=== PATIENT | female | born 1975 | race Caucasian/White ===

== ENCOUNTER 2018-03-12 23:01 | Observation (INO) | payer MEDICAID, OTHER ==
[2018-03-13 00:55] LABS: BASO # 0.1 K/uL (0.0-0.2); BASO % 0.6 % (0.0-2.0); EOS # 0.1 K/uL (0.0-0.7); EOS % 0.6 % (0.0-4.0); HEMOGLOBIN 13.4 g/dL (11.0-16.0); LYMPH # 1.8 K/uL (1.0-4.3); LYMPH % 18.2 % (20.0-40.0); MEAN CELL VOLUME 91.7 fL (81.0-99.0); MEAN CORPUSCULAR HEMOGLOBIN 32.2 pg (27.0-31.0); MEAN CORPUSCULAR HGB CONC 35.1 g/dL (33.0-37.0); MEAN PLATELET VOLUME 7.8 fL (7.2-11.7); MONO % 9.5 % (0.0-10.0); NEUT # 7.2 K/uL (1.8-7.0); NEUT % 71.1 % (50.0-75.0); RBC 4.15 Mil/uL (3.80-5.20); RED CELL DISTRIBUTION WIDTH 12.8 % (11.5-14.5); WHITE BLOOD COUNT 10.1 K/uL (4.8-10.8)
[2018-03-13 01:09] LABS: ALB/GLOB RATIO 1.4 (1.0-2.1); ALBUMIN 4.6 g/dL (3.5-5.0); ALT/SGPT 21 U/L (9-52); AST/SGOT 19 U/L (14-36); BLOOD UREA NITROGEN 11 mg/dL (7-17); GFR AFRICAN-AMERICAN > 60; GFR NON-AFRICAN AMERICAN > 60
--- NOTE | 2018-03-13 01:18 | C.PDOC ---
History Of Present Illness 42 y/o female presents to the ED complaining of painful mass to left breast since yesterday. Also reports subjective fever and chills. Denies any trauma or nipple discharge. Denies any prior mammograms. Denies family history of breast cancer. Time Seen by Provider: 03/12/18 23:18 Chief Complaint (Nursing): Breast Problem History Per: Patient History/Exam Limitations: no limitations Onset/Duration Of Symptoms: Days (x2) Current Symptoms Are (Timing): Still Present Past Medical History Reviewed: Historical Data, Nursing Documentation, Vital Signs Vital Signs: Last Vital Signs Temp 98.3 F 03/13/18 04:16 Pulse 75 03/13/18 04:16 Resp 18 03/13/18 04:16 BP 144/92 H 03/13/18 04:16 Pulse Ox 98 03/13/18 04:16 - Medical History PMH: No Chronic Diseases Surgical History: Family History: States: No Known Family Hx - Social History Hx Tobacco Use: No Hx Alcohol Use: No Hx Substance Use: No - Immunization History Hx Tetanus Toxoid Vaccination: No Hx Influenza Vaccination: No Hx Pneumococcal Vaccination: No Review Of Systems Constitutional: Positive for: Fever, Chills Skin: Positive for: Other (left breast mass). Negative for: Rash Physical Exam - Physical Exam Appears: Non-toxic, No Acute Distress Skin: Warm, Dry Head: Atraumatic, Normacephalic Eye(s): bilateral: Normal Inspection, PERRL, EOMI Neck: Normal ROM, Supple Lymphatic: No Adenopathy (at axilla or cervical regions) Chest: Other (Tender, firm, indurated mass to the left breast at 1-3 oclock area; No skin changes, fluctuance, or nipple discharge; Minimal erythema to the left upper breast) Cardiovascular: Rhythm Regular (but tachy) Respiratory: Normal Breath Sounds, No Accessory Muscle Use, No Rales, No Rhonchi , No Wheezing Gastrointestinal/Abdominal: Soft, No Tenderness, No Distention Back: Normal Inspection Extremity: Bilateral: Atraumatic, Normal Color And Temperature, Normal ROM Pulses: Left Dorsalis Pedis: Normal, Right Dorsalis Pedis: Normal Neurological/Psych: Oriented x3, Normal Speech, Normal Cranial Nerves, Normal Motor, Normal Sensation, Other (No focal deficits) Gait: Steady ED Course And Treatment - Laboratory Results Result Diagrams: 03/13/18 00:51 03/13/18 00:51 O2 Sat by Pulse Oximetry: 99 (RA) Pulse Ox Interpretation: Normal Progress Note: Blood work and cultures sent. Patient treated with PO Tylenol. Administered IV Zosyn and Toradol. 2:25AM Case discussed with Dr. Mccall, who will admit the patient and requests surgical consult. Surgiccal resident paged and aware of consult - Physician Consult Information Physician Contacted: Jamila Mccall Outcome Of Conversation: patient accepted to service for admission Disposition Counseled Patient/Family Regarding: Studies Performed, Diagnosis - Disposition Disposition: HOSPITALIZED Disposition Time: 02:26 Condition: STABLE - Clinical Impression Clinical Impression: Abscess of breast, Mass of left breast - PA / PREFLIGHT INSPECTOR / Resident Statement MD/DO has reviewed & agrees with the documentation as recorded. - Scribe Statement The provider has reviewed the documentation as recorded by the Scribe (Aminata Curran) All medical record entries made by the Scribe were at my direction and personally dictated by me. I have reviewed the chart and agree that the record accurately reflects my personal performance of the history, physical exam, medical decision making, and the department course for this patient. I have also personally directed, reviewed, and agree with the discharge instructions and disposition.
[2018-03-13] MEDS ORDERED: Piperacillin/Tazobact 3.375 gm 100 ML IV STA (02:10)
[2018-03-13] MEDS ORDERED: Piperacillin/Tazobact 3.375 gm 100 ML IVPB ONE (02:35)
[2018-03-13] MEDS ORDERED: HYDROmorphone 1 mg/ml ISec IVP PRN (04:03)
--- NOTE | 2018-03-13 04:07 | CP.PCM.CON ---
<Bryon Khan - Last Filed: 03/13/18 06:12> History of Present Illness - History of Present Illness History of Present Illness: SURGERY CONSULT NOTE FOR DR. MCPHERSON 42F presents to [facility] ED for left painful breast lump. She states she first felt the pain Monday and was not doing anything in particular that could have started it. She states the pain did not resolve so she was doing a self exam where she felt a mass in the left breast. She states she has never had these symptoms before, denies erythema, denies drainage, denies abnormal discharge. She has never had a mammogram or ultrasound of the breast. PMH: denies PSH: *1 Social: denies tobacco and alcohol use Allergies: NKDA Past Patient History - Infectious Disease Hx of Infectious Diseases: None - Past Social History Smoking Status: Never Smoked - PSYCHIATRIC Hx Substance Use: No - SURGICAL HISTORY Hx Surgeries: Yes Hx Section: Yes (x1) - ANESTHESIA Hx Anesthesia: Yes Hx Anesthesia Reactions: No Meds Allergies/Adverse Reactions: Allergies Allergy/AdvReac Type Severity Reaction Status Date / Time No Known Allergies Allergy Verified 03/12/18 23:08 - Medications Medications: Current Medications Hydromorphone HCl (Dilaudid) 1 mg IVP Q4H PRN PRN Reason: Pain, severe (8-10) Piperacillin Sod/Tazobactam (Sod 3.375 gm/ Sodium Chloride) 100 mls @ 200 mls/ hr IVPB Q6H [facility] PRN Reason: Protocol Sodium Chloride (Sodium Chloride 0.9%) 1,000 mls @ 100 mls/hr IV .Q10H [facility] Physical Exam - Constitutional Appears: Non-toxic, No Acute Distress - Eye Exam Eye Exam: EOMI, PERRL - ENT Exam ENT Exam: Mucous Membranes Moist - Respiratory Exam Respiratory Exam: Clear to Auscultation Bilateral, NORMAL BREATHING PATTERN - Cardiovascular Exam Cardiovascular Exam: REGULAR RHYTHM, +S1, +S2 - GI/Abdominal Exam GI & Abdominal Exam: Soft. absent: Distended, Firm, Guarding, Rebound, Rigid, Tenderness - Extremities Exam Extremities exam: Negative for: pedal edema, tenderness - Neurological Exam Neurological exam: Alert, Oriented x3 - Psychiatric Exam Psychiatric exam: Normal Affect, Normal Mood - Skin Skin Exam: Dry, Intact, Normal Color, Warm Additional comments: left breast mass approx 4*4cm, firm and mobile No skin changes, no erythema, no drainage Normal right breast. Results - Vital Signs Recent Vital Signs: Last Vital Signs Temp 98.3 F 03/13/18 03:11 Pulse 67 03/13/18 03:11 Resp 16 03/13/18 03:11 BP 110/73 03/13/18 03:11 Pulse Ox 98 03/13/18 03:11 - Labs Result Diagrams: 03/13/18 00:51 03/13/18 00:51 Labs: Laboratory Results - last 24 hr 03/13/18 03/13/18 03/13/18 00:51 00:51 00:51 WBC 10.1 RBC 4.15 Hgb 13.4 Hct 38.1 MCV 91.7 MCH 32.2 H MCHC 35.1 RDW 12.8 Plt Count 232 MPV 7.8 Neut % (Auto) 71.1 Lymph % (Auto) 18.2 L Emery % (Auto) 9.5 Eos % (Auto) 0.6 Baso % (Auto) 0.6 Neut # (Auto) 7.2 H Lymph # (Auto) 1.8 Emery # (Auto) 1.0 H Eos # (Auto) 0.1 Baso # (Auto) 0.1 Sodium 139 Potassium 3.9 Chloride 102 Carbon Dioxide 25 Anion Gap 16 BUN 11 Creatinine 0.6 L Est GFR ( Amer) > 60 Est GFR (Non-Af Amer) > 60 Random Glucose 107 H Calcium 9.0 Total Bilirubin 0.6 AST 19 ALT 21 Alkaline Phosphatase 83 Total Protein 7.9 Albumin 4.6 Globulin 3.3 Albumin/Globulin Ratio 1.4 Urine HCG, Qual Negative Assessment & Plan - Assessment and Plan (Free Text) Assessment: 42F with painful mass of the left breast Plan: NPO, IVF Pain control Ultrasound of bilateral breast Further recs discuss with Dr. Ky Khan, PGY2 <Gerald Mcpherson - Last Filed: 03/14/18 17:37> Meds - Medications Medications: Current Medications Acetaminophen (Tylenol 325mg Tab) 650 mg PO Q6 PRN PRN Reason: Fever >100.4 F Hydromorphone HCl (Dilaudid) 0.5 mg IVP Q6 [facility] Last Admin: 03/14/18 12:40 Dose: Not Given Sodium Chloride (Sodium Chloride 0.9%) 1,000 mls @ 100 mls/hr IV .Q10H [facility]PH[facility]IE Last Admin: 03/14/18 12:23 Dose: 100 mls/hr Results - Vital Signs Recent Vital Signs: Last Vital Signs Temp 98.2 F 03/14/18 15:00 Pulse 65 03/14/18 15:00 Resp 20 03/14/18 15:00 BP 120/80 03/14/18 15:00 Pulse Ox 100 03/14/18 15:00 - Labs Result Diagrams: 03/14/18 07:40 03/14/18 07:40 Labs: Laboratory Results - last 24 hr 03/14/18 03/14/18 03/14/18 07:40 07:40 07:59 WBC 9.6 RBC 4.31 Hgb 14.0 Hct 39.5 MCV 91.6 MCH 32.5 H MCHC 35.5 RDW 13.3 Plt Count 194 MPV 8.7 Neut % (Auto) 70.2 Lymph % (Auto) 20.2 Emery % (Auto) 7.5 Eos % (Auto) 1.3 Baso % (Auto) 0.8 Neut # (Auto) 6.8 Lymph # (Auto) 1.9 Emery # (Auto) 0.7 Eos # (Auto) 0.1 Baso # (Auto) 0.1 Sodium 139 Potassium 4.0 Chloride 106 Carbon Dioxide 25 Anion Gap 12 BUN 10 Creatinine 0.6 L Est GFR ( Amer) > 60 Est GFR (Non-Af Amer) > 60 Random Glucose 101 Calcium 8.7 Total Bilirubin 0.7 AST 22 ALT 17 Alkaline Phosphatase 77 Total Protein 7.5 Albumin 4.2 Globulin 3.3 Albumin/Globulin Ratio 1.3 Urine HCG, Qual Negative Attending/Attestation - Attestation I have personally seen and examined this patient.: Yes I have fully participated in the care of the patient.: Yes I have reviewed all pertinent clinical information: Yes Notes (Text): Pt was seen and examined at bedside Agree with above note and assessment Pt with Left breast pain and Mass Us of breast suggestive of BIRADS 0, No collection Left Breast: Tender in left outer mid breast with palpable mass. No axillary LNpathy Labs and radiology reviewed. Ass: Left breast mastitis. possible abscess Plan: C.w IV antibiotics CT scan of A/P Po analgesics Plan d.w pt in detail Risk and benefit explained in detail.
[2018-03-13] MEDS: Sodium Chloride 0.9% 1,000 ML IV SCH ×3 (04:33→23:44)
[2018-03-13] MEDS: Piperacillin/Tazobact 3.375 GM in Sodium Chloride 100 ML IVPB SCH ×4 (04:39→21:17)
[2018-03-13 07:55] VITALS: RESP 20
--- NOTE | 2018-03-13 09:37 | RAD ---
HISTORY: preop COMPARISON: No prior. TECHNIQUE: Chest PA and lateral FINDINGS: LUNGS: No active pulmonary disease. PLEURA: No significant pleural effusion identified. No pneumothorax apparent. CARDIOVASCULAR: Normal. OSSEOUS STRUCTURES: Mild multilevel degenerative spondylosis of the thoracic spine. Mild dextroscoliosis centered in the mid to lower thoracic region VISUALIZED UPPER ABDOMEN: Normal. OTHER FINDINGS: Bilateral in situ nipple rings. IMPRESSION: No active disease.
--- NOTE | 2018-03-13 10:40 | CP.PCM.HP ---
History of Present Illness - History of Present Illness History of Present Illness: pt has mass l brest tender and warm Present on Admission - Present on Admission Any Indicators Present on Admission: No Review of Systems - Review of Systems Systems not reviewed;Unavailable: Acuity of Condition - Constitutional Constitutional: As Per HPI - EENT Eyes: As Per HPI Ears: As Per HPI Nose/Mouth/Throat: As Per HPI - Breasts Breasts: As Per HPI - Cardiovascular Cardiovascular: As Per HPI - Respiratory Respiratory: As Per HPI - Gastrointestinal Gastrointestinal: As Per HPI - Genitourinary Genitourinary: As Per HPI - Reproductive: Female Reproductive:Female: As Per HPI - Menstruation Menstruation: As Per HPI - Musculoskeletal Musculoskeletal: As Per HPI - Integumentary Integumentary: As Per HPI - Neurological Neurological: As Per HPI - Psychiatric Psychiatric: As Per HPI - Endocrine Endocrine: As Per HPI - Hematologic/Lymphatic Hematologic: As Per HPI Past Patient History - Infectious Disease Hx of Infectious Diseases: None - Past Social History Smoking Status: Never Smoked - PSYCHIATRIC Hx Substance Use: No - SURGICAL HISTORY Hx Surgeries: Yes Hx Section: Yes (x1) - ANESTHESIA Hx Anesthesia: Yes Hx Anesthesia Reactions: No Meds Allergies/Adverse Reactions: Allergies Allergy/AdvReac Type Severity Reaction Status Date / Time No Known Allergies Allergy Verified 03/12/18 23:08 Physical Exam - Constitutional Appears: Non-toxic - Head Exam Head Exam: NORMAL INSPECTION - Eye Exam Eye Exam: Normal appearance Pupil Exam: NORMAL ACCOMODATION - ENT Exam ENT Exam: Mucous Membranes Moist - Neck Exam Neck exam: Positive for: Full Rom - Respiratory Exam Respiratory Exam: NORMAL BREATHING PATTERN - Cardiovascular Exam Cardiovascular Exam: REGULAR RHYTHM - GI/Abdominal Exam GI & Abdominal Exam: Normal Bowel Sounds - Rectal Exam Rectal Exam: NORMAL INSPECTION - Exam Exam: NORMAL INSPECTION - Extremities Exam Extremities exam: Positive for: normal inspection - Back Exam Back exam: NORMAL INSPECTION - Neurological Exam Neurological exam: Oriented x3 - Psychiatric Exam Psychiatric exam: Normal Affect - Skin Skin Exam: Normal Color Results - Vital Signs Recent Vital Signs: Last Vital Signs Temp 97.9 F 03/13/18 07:00 Pulse 70 03/13/18 07:00 Resp 20 03/13/18 07:00 BP 112/74 03/13/18 07:00 Pulse Ox 99 03/13/18 08:15 - Labs Result Diagrams: 03/13/18 00:51 03/13/18 00:51 Labs: Laboratory Results - last 24 hr 03/13/18 03/13/18 03/13/18 00:51 00:51 00:51 WBC 10.1 RBC 4.15 Hgb 13.4 Hct 38.1 MCV 91.7 MCH 32.2 H MCHC 35.1 RDW 12.8 Plt Count 232 MPV 7.8 Neut % (Auto) 71.1 Lymph % (Auto) 18.2 L Mcclain % (Auto) 9.5 Eos % (Auto) 0.6 Baso % (Auto) 0.6 Neut # (Auto) 7.2 H Lymph # (Auto) 1.8 Mcclain # (Auto) 1.0 H Eos # (Auto) 0.1 Baso # (Auto) 0.1 Sodium 139 Potassium 3.9 Chloride 102 Carbon Dioxide 25 Anion Gap 16 BUN 11 Creatinine 0.6 L Est GFR ( Amer) > 60 Est GFR (Non-Af Amer) > 60 Random Glucose 107 H Calcium 9.0 Total Bilirubin 0.6 AST 19 ALT 21 Alkaline Phosphatase 83 Total Protein 7.9 Albumin 4.6 Globulin 3.3 Albumin/Globulin Ratio 1.4 Urine HCG, Qual Negative Assessment & Plan - Assessment and Plan (Free Text) Assessment: ac pain fever tender sewling l brest possible abcess Plan: as per orders - Date & Time Date: 03/13/18 Time: 10:40
[2018-03-13] MEDS: HYDROmorphone 0.5 mg/0.5 ml ISec IVP SCH ×3 (12:16→23:47)
[2018-03-13 14:09] LABS: INR 1.1; PROTHROMBIN TIME 11.7 SECONDS (9.7-12.2)
--- NOTE | 2018-03-13 17:13 | US ---
PROCEDURE: HISTORY: mass tender left breast COMPARISON: None TECHNIQUE: Targeted left breast attention to the concern in the left breast at 2 to 3 o'clock was made. FINDINGS: Over patient's area of palpable nodularity, there was echogenic and heterogeneous fibrocystic like echotexture noted. No discrete cyst, solid mass or worrisome sonographic appearance here noted. IMPRESSION: No sonographic simple cyst or solid discrete mass or sonographic worrisome mass in the area of clinical concern. Patient is not presenting as if she has any type of left sided mastitis. There is no abscess here suggested either. No skin thickening or nipple retraction noted. The the area palpable concern benign gross cystic appearing echotexture is noted. Clinical correlation and follow-up is recommended. According to the patient she is yet to have a mammogram. This is strongly recommended as well . This was explained to the patient BIRADS-0 Need Additional Imaging Evaluation diagnostic mammography recommended
[2018-03-13] MEDS ORDERED: Iodixanol 320 MG/ML 100 ML BOTTLE IV ONE ×2 (18:27→18:35)
--- NOTE | 2018-03-13 19:49 | CT ---
EXAM: CT Chest With Intravenous Contrast EXAM DATE/TIME: Exam ordered 03/13/2018 5:34 PM CLINICAL HISTORY: 42 years old, female; Pain; Other: Left breast pain; Additional info: Brest pain TECHNIQUE: Axial computed tomography images of the chest with intravenous contrast. All CT scans at this facility use one or more dose reduction techniques, viz.: automated exposure control; ma/kV adjustment per patient size (including targeted exams where dose is matched to indication; i.e. head); or iterative reconstruction technique. Coronal and sagittal reformatted images were created and reviewed. CONTRAST: 100 mL of visipaque administered intravenously. COMPARISON: No relevant prior studies available. FINDINGS: Lungs: Unremarkable. No mass. No consolidation. Pleural space: Unremarkable. No pneumothorax. No significant effusion. Heart: Unremarkable. No cardiomegaly. No significant pericardial effusion. Bones/joints: Unremarkable. No acute fracture. No dislocation. Soft tissues: There is mild asymmetric increased density noted of the left breast as compared to the right. There is a right-sided nipple ring. There is thickening noted of the nipple and areola. Note is made of the report of the breast ultrasound which indicated no skin thickening. Vasculature: Unremarkable. No thoracic aortic aneurysm. Lymph nodes: Unremarkable. No enlarged lymph nodes. IMPRESSION: 1. Mild asymmetry noted in breast density with the left breast being denser than the right. Additionally mild thickening of the skin and nipple/areola is noted when compared to the contralateral side. Findings are most consistent with a mastitis/cellulitis. Inflammatory carcinoma can mimic mastitis. Correlation with the patient's mammogram and clinical exam would be helpful. Consultation with a breast surgeon might also be considered
[2018-03-14] MEDS: Piperacillin/Tazobact 3.375 GM in Sodium Chloride 100 ML IVPB SCH (03:59)
[2018-03-14] MEDS: HYDROmorphone 0.5 mg/0.5 ml ISec IVP SCH ×3 (06:07→18:00)
[2018-03-14 07:46] LABS: BASO # 0.1 K/uL (0.0-0.2); BASO % 0.8 % (0.0-2.0); EOS # 0.1 K/uL (0.0-0.7); EOS % 1.3 % (0.0-4.0); LYMPH # 1.9 K/uL (1.0-4.3); LYMPH % 20.2 % (20.0-40.0); MEAN CELL VOLUME 91.6 fL (81.0-99.0); MEAN CORPUSCULAR HEMOGLOBIN 32.5 pg (27.0-31.0); MEAN CORPUSCULAR HGB CONC 35.5 g/dL (33.0-37.0); MEAN PLATELET VOLUME 8.7 fL (7.2-11.7); MONO # 0.7 K/uL (0.0-0.8); MONO % 7.5 % (0.0-10.0); NEUT # 6.8 K/uL (1.8-7.0); NEUT % 70.2 % (50.0-75.0); NRBC % 0.1 % (0.0-2.0); RBC 4.31 Mil/uL (3.80-5.20); RED CELL DISTRIBUTION WIDTH 13.3 % (11.5-14.5); WHITE BLOOD COUNT 9.6 K/uL (4.8-10.8)
[2018-03-14 08:05] LABS: ALB/GLOB RATIO 1.3 (1.0-2.1); ALBUMIN 4.2 g/dL (3.5-5.0); ALT/SGPT 17 U/L (9-52); AST/SGOT 22 U/L (14-36); BLOOD UREA NITROGEN 10 mg/dL (7-17); CALCIUM 8.7 mg/dl (8.6-10.4); GFR AFRICAN-AMERICAN > 60; GFR NON-AFRICAN AMERICAN > 60
--- NOTE | 2018-03-14 11:07 | CP.PCM.PN ---
Subjective - Date & Time of Evaluation Date of Evaluation: 03/14/18 Time of Evaluation: 11:05 - Subjective Subjective: pt has tender mass l brest seen by mandoan will go to or today Objective - Vital Signs/Intake and Output Vital Signs (last 24 hours): Temp Pulse Resp BP Pulse Ox 98.2 F 71 20 130/83 97 03/14/18 07:05 03/14/18 07:05 03/14/18 07:05 03/14/18 07:05 03/14/18 07:05 Intake and Output: 03/14/18 03/14/18 06:59 18:59 Intake Total 1120 Balance 1120 - Medications Medications: Current Medications Acetaminophen (Tylenol 325mg Tab) 650 mg PO Q6 PRN PRN Reason: Fever >100.4 F Hydromorphone HCl (Dilaudid) 0.5 mg IVP Q6 [facility] Last Admin: 03/14/18 06:07 Dose: Not Given Sodium Chloride (Sodium Chloride 0.9%) 1,000 mls @ 100 mls/hr IV .Q10H [facility] Last Admin: 03/13/18 23:44 Dose: 100 mls/hr - Labs Labs: 03/14/18 07:40 03/14/18 07:40 PT 11.7 SECONDS (9.7-12.2) 03/13/18 13:56 INR 1.1 03/13/18 13:56 APTT 29 SECONDS (21-34) 03/13/18 13:56 - Constitutional Appears: Non-toxic - Head Exam Head Exam: NORMAL INSPECTION - Eye Exam Eye Exam: Normal appearance Pupil Exam: NORMAL ACCOMODATION - ENT Exam ENT Exam: Normal Exam - Neck Exam Neck Exam: Full ROM - Respiratory Exam Respiratory Exam: Clear to Ausculation Bilateral - Cardiovascular Exam Cardiovascular Exam: REGULAR RHYTHM Additional comments: ekg normal - GI/Abdominal Exam GI & Abdominal Exam: Normal Bowel Sounds - Exam Exam: NORMAL INSPECTION - Extremities Exam Extremities Exam: Full ROM - Back Exam Back Exam: NORMAL INSPECTION - Neurological Exam Neurological Exam: Alert, Normal Gait, Oriented x3 - Psychiatric Exam Psychiatric exam: Normal Affect - Skin Skin Exam: Normal Color Assessment and Plan - Assessment and Plan (Free Text) Assessment: tender mass brest Plan: or today
[2018-03-14] MEDS: Sodium Chloride 0.9% 1,000 ML IV SCH ×3 (11:15→21:26)
--- NOTE | 2018-03-14 14:29 | CP.PCM.PN ---
<Bryon Khan - Last Filed: 03/14/18 14:26> Subjective - Date & Time of Evaluation Date of Evaluation: 03/14/18 Time of Evaluation: 14:26 - Subjective Subjective: SURGERY NOTE FOR DR. MCPHERSON 42F seen and examined at bedside. Patient states left breast pain continues, denies fevers or chills, denies any other symptoms. Objective - Vital Signs/Intake and Output Vital Signs (last 24 hours): Temp Pulse Resp BP Pulse Ox 98.2 F 71 20 130/83 97 03/14/18 07:05 03/14/18 07:05 03/14/18 07:05 03/14/18 07:05 03/14/18 07:05 Intake and Output: 03/14/18 03/14/18 06:59 18:59 Intake Total 1120 700 Balance 1120 700 - Medications Medications: Current Medications Acetaminophen (Tylenol 325mg Tab) 650 mg PO Q6 PRN PRN Reason: Fever >100.4 F Hydromorphone HCl (Dilaudid) 0.5 mg IVP Q6 [facility] Last Admin: 03/14/18 12:40 Dose: Not Given Sodium Chloride (Sodium Chloride 0.9%) 1,000 mls @ 100 mls/hr IV .Q10H [facility] Last Admin: 03/14/18 12:23 Dose: 100 mls/hr - Labs Labs: 03/14/18 07:40 03/14/18 07:40 PT 11.7 SECONDS (9.7-12.2) 03/13/18 13:56 INR 1.1 03/13/18 13:56 APTT 29 SECONDS (21-34) 03/13/18 13:56 - Constitutional Appears: Non-toxic, No Acute Distress - Respiratory Exam Respiratory Exam: Clear to Ausculation Bilateral, NORMAL BREATHING PATTERN - Cardiovascular Exam Cardiovascular Exam: REGULAR RHYTHM, +S1, +S2 - GI/Abdominal Exam GI & Abdominal Exam: Soft. absent: Distended, Firm, Guarding, Rigid, Tenderness - Extremities Exam Extremities Exam: absent: Pedal Edema, Tenderness - Neurological Exam Neurological Exam: Alert, Awake - Additional Findings Additional findings: left breast palpable mass, mild redness of superficial skin Assessment and Plan - Assessment and Plan (Free Text) Assessment: 42F with left breast pain Plan: - Patient clear for DC from surgical standpoint with 7 days of PO Levaquin - Patient must follow up in the office in [address] mcpherson Further recs discuss with Dr. Ky Khan, PGY2 <Gerald Mcpherson - Last Filed: 03/14/18 17:46> Objective - Vital Signs/Intake and Output Vital Signs (last 24 hours): Temp Pulse Resp BP Pulse Ox 98.2 F 65 20 120/80 100 03/14/18 15:00 03/14/18 15:00 03/14/18 15:00 03/14/18 15:00 03/14/18 15:00 Intake and Output: 03/14/18 03/14/18 06:59 18:59 Intake Total 1120 700 Balance 1120 700 - Medications Medications: Current Medications Acetaminophen (Tylenol 325mg Tab) 650 mg PO Q6 PRN PRN Reason: Fever >100.4 F Hydromorphone HCl (Dilaudid) 0.5 mg IVP Q6 [facility] Last Admin: 03/14/18 12:40 Dose: Not Given Sodium Chloride (Sodium Chloride 0.9%) 1,000 mls @ 100 mls/hr IV .Q10H [facility] Last Admin: 03/14/18 12:23 Dose: 100 mls/hr - Labs Labs: 03/14/18 07:40 03/14/18 07:40 PT 11.7 SECONDS (9.7-12.2) 03/13/18 13:56 INR 1.1 03/13/18 13:56 APTT 29 SECONDS (21-34) 03/13/18 13:56 Attending/Attestation - Attestation I have personally seen and examined this patient.: Yes I have fully participated in the care of the patient.: Yes I have reviewed all pertinent clinical information, including history, physical exam and plan: Yes Notes (Text): Pt was seen and examined at bedside Agree with above note and assessment Pt is improving clinically CT scan of breast suggestive of no drainable collection. C.w IV antibiotics No surgical intervention required at present DC home with PO antibiotics Plan d.w pt in detail Risk and benefit explained in detail.
[2018-03-14] MEDS: Piperacill/Tazo 3.375gm in Dex 3.375 GM/50 ML BAG IVPB SCH (22:26)
--- NOTE | 2018-03-14 23:04 | CARD ---
APPROVED REPORT EKG Measurement Heart [id number] [place] [id number] <Conclusion> Normal sinus rhythm Normal ECG
[2018-03-15] MEDS: Piperacill/Tazo 3.375gm in Dex 3.375 GM/50 ML BAG IVPB SCH ×3 (04:15→16:19)
[2018-03-15 08:38] VITALS: TEMP 98.3
--- NOTE | 2018-03-15 15:53 | CP.PCM.PN ---
Subjective - Date & Time of Evaluation Date of Evaluation: 03/15/18 Time of Evaluation: 15:51 - Subjective Subjective: feels beter massisgeting smaller Objective - Vital Signs/Intake and Output Vital Signs (last 24 hours): Temp Pulse Resp BP Pulse Ox 98.3 F 70 20 119/76 100 03/15/18 08:00 03/15/18 08:00 03/15/18 08:00 03/15/18 08:00 03/15/18 12:40 Intake and Output: 03/15/18 03/15/18 06:59 18:59 Intake Total 1210 Balance 1210 - Medications Medications: Current Medications Acetaminophen (Tylenol 325mg Tab) 650 mg PO Q6 PRN PRN Reason: Fever >100.4 F Piperacillin Sod/Tazobactam Sod (Zosyn 3.375 Gm Iv Premix) 3.375 gm in 50 mls @ 100 mls/hr IVPB Q6H [facility] PRN Reason: Protocol Last Admin: 03/15/18 09:40 Dose: 100 mls/hr - Labs Labs: 03/14/18 07:40 03/14/18 07:40 PT 11.7 SECONDS (9.7-12.2) 03/13/18 13:56 INR 1.1 03/13/18 13:56 APTT 29 SECONDS (21-34) 03/13/18 13:56 - Constitutional Appears: Non-toxic - Head Exam Head Exam: NORMAL INSPECTION - Eye Exam Eye Exam: Normal appearance Pupil Exam: NORMAL ACCOMODATION - ENT Exam ENT Exam: Mucous Membranes Moist - Neck Exam Neck Exam: Normal Inspection - Respiratory Exam Respiratory Exam: Clear to Ausculation Bilateral - Cardiovascular Exam Cardiovascular Exam: REGULAR RHYTHM - GI/Abdominal Exam GI & Abdominal Exam: Normal Bowel Sounds Assessment and Plan - Assessment and Plan (Free Text) Assessment: inflamatory brest mass as per jenny will d/c on antibiotic oraly and f/u in office Plan: discharge on oral antbiotic
[2018-03-15 16:37] VITALS: BP 113/76; PULSE 64; O2SAT 99
== END 2018-03-15 18:45 | disposition home or self-care (01) ==
LOC: C.ER 23:01 → C.9E 03-13 02:26 → C.6T 03-13 03:21
PROVIDERS: ADMIT Internal Medicine; ATTEND Internal Medicine
DX: N60.02 Solitary cyst of left breast (principal)
CPT/HCPCS: 36415; 71046; 71260; 76642; 80053; 84703; 85025; 85610; 85730; 87040; 93005; 96374; 99285; G0378; J1885; J2543; J7030; J7050; Q9967

== ENCOUNTER 2018-12-07 16:20 | Emergency (ER) | payer MEDICAID ==
[2018-12-07 16:28] VITALS: BP 127/85; PULSE 83; RESP 20; TEMP 98.4; O2SAT 98
--- NOTE | 2018-12-07 18:34 | C.PDOC ---
History Of Present Illness Patient is a 43 year old female who presents to the ED for evaluation of left knee pain for the past week and a half that has been worse with movement. Patient reports that she has been taking ibuprofen and using patches without relief. She denies any CP, SOB, rash, falls, or injuries. Time Seen by Provider: 12/07/18 16:46 Chief Complaint (Nursing): Lower Extremity Problem/Injury History Per: Patient History/Exam Limitations: no limitations Onset/Duration Of Symptoms: Days (week and a half ) Current Symptoms Are (Timing): Still Present Recent travel outside of the [place]: No Additional History Per: Patient Past Medical History Reviewed: Historical Data, Nursing Documentation, Vital Signs Vital Signs: Last Vital Signs Temp 98.4 F 12/07/18 16:26 Pulse 83 12/07/18 16:26 Resp 20 12/07/18 16:26 BP 127/85 12/07/18 16:26 Pulse Ox 98 12/07/18 16:26 - Medical History PMH: No Chronic Diseases Surgical History: Family History: States: Unknown Family Hx - Social History Hx Tobacco Use: No Hx Alcohol Use: Yes Hx Substance Use: No - Immunization History Hx Tetanus Toxoid Vaccination: No Hx Influenza Vaccination: No Hx Pneumococcal Vaccination: No Review Of Systems Cardiovascular: Negative for: Chest Pain Respiratory: Negative for: Shortness of Breath Musculoskeletal: Positive for: Leg Pain (left knee pain ) Skin: Negative for: Rash Physical Exam - Physical Exam Appears: Non-toxic, No Acute Distress Skin: Normal Color, Warm, Dry Head: Atraumatic, Normacephalic Cardiovascular: Rhythm Regular, No Murmur Respiratory: Normal Breath Sounds, No Rales, No Rhonchi, No Wheezing Extremity: Tenderness (diffuse tenderness to palpation of left knee ), Calf Tenderness (mild upper ), No Swelling, No Other (erythema ) Neurological/Psych: Oriented x3 ED Course And Treatment O2 Sat by Pulse Oximetry: 98 (on RA) Pulse Ox Interpretation: Normal - Other Rad Xray Left Knee X-Ray: Viewed By Me, Read By Radiologist Interpretation: Date of service: 12/07/2018. PROCEDURE: Left Knee Radiographs. HISTORY: Pain. COMPARISON: None. FINDINGS: BONES: Normal. No fracture. JOINTS: Normal. No osteoarthritis. JOINT EFFUSION: There is a small suprapatellar joint effusion. OTHER FINDINGS: None. IMPRESSION: No acute fracture or dislocation. Progress Note: Plan: Xray Lft Knee. Xray normal. Patient instructed to return to the ED tomorrow for a venous doppler and told to follow up with orthopedics. Disposition Counseled Patient/Family Regarding: Diagnosis, Need For Followup, Rx Given - Disposition Referrals: [facility] at [facility] [Outside] Hortensia Daniels MD [Staff Provider] - Disposition: HOME/ ROUTINE Disposition Time: 18:30 Condition: STABLE Additional Instructions: RETURN TO EMERGENCY ROOM TOMORROW MORNING FOR VENOUS DOPPLER TO RULE OUT BLOOD CLOT USE PAIN MEDICATION NEEDED FOLLOW UP WITH ORTHOPEDICS WITHIN 1 WEEK Prescriptions: Naproxen [Naprosyn] 1 tab PO BID PRN #25 tab PRN Reason: Pain Instructions: Knee Sprain (DC) Forms: [email or web address] (Irish) Print Language: BHUTANESE - Clinical Impression Clinical Impression: Left knee pain - Scribe Statement The provider has reviewed the documentation as recorded by the Matilda Munoz All medical record entries made by the Graemeibnayely were at my direction and personally dictated by me. I have reviewed the chart and agree that the record accurately reflects my personal performance of the history, physical exam, medical decision making, and the department course for this patient. I have also personally directed, reviewed, and agree with the discharge instructions and disposition.
== END 2018-12-07 19:01 | disposition home or self-care (01) ==
LOC: C.ER 16:20
DX: M25.562 Pain in left knee (principal)

== ENCOUNTER 2018-12-08 12:05 | Emergency (ER) | payer MEDICAID, OTHER ==
[2018-12-08 12:11] VITALS: BMI 30.9
[2018-12-08 12:13] VITALS: BP 117/76; PULSE 75; RESP 18; TEMP 98.2; O2SAT 97
--- NOTE | 2018-12-08 12:15 | C.PDOC ---
History Of Present Illness 43 y/o female was seen here yesterday for left knee pain x1 week and was discharged home. Patient was instructed to return to ED today for DVT study. She denies any chest pain, SOB, rash, fall, or injuries. Time Seen by Provider: 12/08/18 12:14 Chief Complaint (Nursing): Lower Extremity Problem/Injury History Per: Patient History/Exam Limitations: no limitations Onset/Duration Of Symptoms: Days Current Symptoms Are (Timing): Still Present Past Medical History Reviewed: Historical Data, Nursing Documentation, Vital Signs Vital Signs: Last Vital Signs Temp 98.2 F 12/08/18 12:11 Pulse 75 12/08/18 12:11 Resp 18 12/08/18 12:11 BP 117/76 12/08/18 12:11 Pulse Ox 97 12/08/18 12:11 Surgical History: Family History: States: No Known Family Hx - Social History Hx Tobacco Use: No Hx Alcohol Use: No Hx Substance Use: No - Immunization History Hx Tetanus Toxoid Vaccination: No Hx Influenza Vaccination: No Hx Pneumococcal Vaccination: No Review Of Systems Constitutional: Negative for: Fever, Chills, Weakness, Malaise, Weight loss Eyes: Negative for: Pain, Vision Change, Conjunctivae Inflammation, Eyelid Inflammation, Redness ENT: Negative for: Ear Pain, Ear Discharge, Nose Pain, Nose Congestion, Mouth Pain, Mouth Swelling Cardiovascular: Negative for: Chest Pain, Palpitations, Orthopnea, Edema, Light Headedness Respiratory: Negative for: Cough, Shortness of Breath, SOB with Excertion Gastrointestinal: Negative for: Nausea, Vomiting, Abdominal Pain, Diarrhea, Constipation, Melena, Hematochezia, Hematemesis Genitourinary: Negative for: Frequency, Incontinence, Hematuria, Vaginal Discharge, Vaginal Bleeding, Pelvic Pain Musculoskeletal: Positive for: Other (Left Knee Pain). Negative for: Neck Pain, Shoulder Pain, Back Pain, Hand Pain Neurological: Negative for: Weakness, Numbness Physical Exam - Physical Exam Appears: Well, Non-toxic, No Acute Distress Skin: Warm, Dry Head: Atraumatic, Normacephalic Eye(s): bilateral: Normal Inspection, PERRL, EOMI Nose: Normal Oral Mucosa: Moist Tongue: Normal Appearing Lips: Normal Appearing Teeth: Normal Dentition Gingiva: Normal Appearing Throat: Normal Neck: Normal, Normal ROM, Supple, Other (no meningeal signs) Cardiovascular: Rhythm Regular, No Murmur Respiratory: Normal Breath Sounds, No Rales, No Rhonchi, No Wheezing Gastrointestinal/Abdominal: Soft, No Tenderness Back: Normal Inspection, No CVA Tenderness, No Vertebral Tenderness Extremity: Normal ROM, No Calf Tenderness, No Deformity, No Swelling (or erythema), Other (point tenderness to palpation of left knee, anterior side) Extremity: Bilateral: Atraumatic (negative thompsons test in L), Normal Color And Temperature, Normal ROM Neurological/Psych: Oriented x3, Normal Speech, Normal Motor Gait: Steady ED Course And Treatment O2 Sat by Pulse Oximetry: 97 (RA) Pulse Ox Interpretation: Normal Medical Decision Making Medical Decision Makin yr old F p/w L knee pain sent in for eval of venous dopplers. Had negative Xray yesterday. No redness overlying knee today, n/v intact distally. No indication of trauma from previous HPI Plan: --Venous Duplex Scan 1447 venous duplex unremarkable good gait, remains n/v intact clear for d/c home with return indications and f/u Disposition - Disposition Referrals: Hortensia Daniels MD [Staff Provider] - [facility] [Outside] [facility] [Outside] Disposition: HOME/ ROUTINE Disposition Time: 14:26 Condition: GOOD Additional Instructions: PARIS CONDE, thank you for letting us take care of you today. Your provider was Channing Bliss and you were treated for FOLLOW UP. The emergency medical care you received today was directed at your acute symptoms. If you were prescribed any medication, please fill it and take as directed. It may take several days for your symptoms to resolve. Return to the Emergency Department if your symptoms worsen, do not improve, or if you have any other problems. Please contact your doctor or call one of the physicians/clinics you have been referred to that are listed on the Patient Visit Information form that is included in your discharge packet. Bring any paperwork you were given at discharge with you along with any medications you are taking to your follow up visit. Our treatment cannot replace ongoing medical care by a primary care provider outside of the emergency department. Thank you for allowing the [facility] team to be part of your care today. If you had an X-Ray or CT scan: A Radiologist will review the ED reading if any change in treatment is needed we will contact you. If you had a blood, urine, or wound culture: It will take several days for the results, if any change in treatment is needed we will contact you. If you had an STI test: It will take 48 hours for the results. Please call after 1 week if you have not heard back. Instructions: Knee Pain (DC) Forms: [employer] (Beninese) - Clinical Impression Clinical Impression: Left knee pain, Joint pain - Scribe Statement The provider has reviewed the documentation as recorded by the Matilda Garcia Provider Attestation: All medical record entries made by the Matilda were at my direction and personally dictated by me. I have reviewed the chart and agree that the record accurately reflects my personal performance of the history, physical exam, medical decision making, and the department course for this patient. I have also personally directed, reviewed, and agree with the discharge instructions and disposition.
--- NOTE | 2018-12-10 10:07 | VASCLAB ---
Date of service: 12/08/2018 PROCEDURE: Left Lower Extremity Venous Duplex Exam. HISTORY: Pain in limb, rule out dvt PRIORS: None. TECHNIQUE: Left common femoral, femoral, popliteal and posterior tibial, peroneal and great saphenous veins were evaluated. Flow was assessed with color Doppler, compressibility, assessment of phasic flow and augmentation response. Report prepared by GEENA Pressley FINDINGS: LEFT: 1. Common Femoral Vein: 1.1. Compressibility - Fully compressible: Thrombus - None : Flow - Phasic: Augmentation -Normal: Reflux - None. 2. Femoral Vein: 2.1. Compressibility - Fully compressible: Thrombus - None: Flow - Phasic: Augmentation -Normal: Reflux - None. 3. Popliteal Vein: 3.1. Compressibility - Fully compressible: Thrombus - None: Flow - Phasic: Augmentation -Normal: Reflux - None. 4. Posterior Tibial Vein: 4.1. Compressibility - Fully compressible: Thrombus - None: Flow - Phasic: Augmentation -Normal: Reflux - None. 5. Peroneal Vein: 5.1. Compressibility - Fully compressible: Thrombus - None: Flow - Phasic: Augmentation -Normal: Reflux - None. 6. Great Saphenous Vein: 6.1. Compressibility - Fully compressible: Thrombus - None: Flow - Phasic: Augmentation - Normal: Reflux - None. OTHER FINDINGS: IMPRESSION: No evidence of deep or superficial vein thrombosis of the left lower extremity with excellent venous flow. Normal valve function noted of the left side. Normal venous flow noted in the right common femoral vein.
== END 2018-12-08 14:39 | disposition home or self-care (01) ==
LOC: C.ER 12:05
DX: M25.562 Pain in left knee (principal); M25.50 Pain in unspecified joint